=== PATIENT | female | born 1960 | race African-American/Black ===

== ENCOUNTER 2024-04-28 15:56 | Emergency (ER) | payer OTHER ==
[~2024-04-28] VITALS: Ht 162.6 cm; Wt 58.0 kg
[2024-04-28 16:31] VITALS: O2SAT 100
[2024-04-28] MEDS ORDERED: CEFTRIAXONE SODIUM 500MG VIAL IM ONE (17:30)
[2024-04-28] MEDS ORDERED: DOXY100T2 MT (17:58)
[2024-04-28] MEDS ORDERED: METR-167 MT (17:58)
[2024-04-28 18:02] LABS: CLARITY URINE TURBID (CLEAR); COLOR URINE DARK YELLOW (YELLOW); GLUCOSE URINE NEGATIVE (NEGATIVE); KETONES URINE NEGATIVE (NEGATIVE); LEUKOCYTE ESTERASE URINE 3+ (NEGATIVE); NITRITE URINE NEGATIVE (NEGATIVE); OCCULT BLOOD URINE 2+ (NEGATIVE); PH URINE 5.5 (4.5-8.0); PROTEIN URINE 2+ (NEGATIVE); SPECIFIC GRAVITY URINE 1.027 (1.005-1.030)
[2024-04-28 18:34] LABS: BACTERIA URINE 3+; SQUAMOUS EPITHELIAL CELL URINE 1+ /lpf (RARE/1+)
[2024-04-28 18:35] LABS: WBC URINE TNTC /hpf (0-2)
[2024-04-28 19:41] VITALS: BP 128/90; PULSE 80; RESP 18; TEMP 36.89184; O2SAT 100
[2024-04-28] MEDS: CEFTRIAXONE SODIUM 500MG VIAL IM NR (19:41)
[2024-04-30 14:08] LABS: CHLAMYDIA TRACHOMATIS NAA Negative (Negative); NEISSERIA GONORRHOEAE NAA Negative (Negative)
== END 2024-04-28 19:42 | disposition home or self-care (01) ==
LOC: ER 15:56
DX: N89.8 Other specified noninflammatory disorders of vagina (principal); I10 Essential (primary) hypertension; Z86.73 Personal history of transient ischemic attack (TIA), and cerebral infarction without residual deficits
CPT/HCPCS: 99283; 87491; 87591; 81003; 87086; 96372; J0696

== ENCOUNTER 2024-06-13 05:48 | Emergency (ER) | payer SELFPAY ==
[~2024-06-13] VITALS: Ht 170.2 cm; Wt 66.0 kg
[~2024-06-13 05:48] MED LIST: DOXY100T2 MT; METR-167 MT
[2024-06-13 06:15] VITALS: O2SAT 100
[2024-06-13] MEDS: LIDOCAINE HCL/PF 1% 10 MG/ML 5ML VIAL IJ NR (07:42)
[2024-06-13] MEDS: CEFTRIAXONE SODIUM 500MG VIAL IM NR (07:43)
[2024-06-13 07:59] LABS: CLARITY URINE CLEAR (CLEAR); COLOR URINE YELLOW (YELLOW); GLUCOSE URINE NEGATIVE (NEGATIVE); KETONES URINE NEGATIVE (NEGATIVE); LEUKOCYTE ESTERASE URINE 3+ (NEGATIVE); NITRITE URINE NEGATIVE (NEGATIVE); OCCULT BLOOD URINE NEGATIVE (NEGATIVE); PROTEIN URINE NEGATIVE (NEGATIVE); SPECIFIC GRAVITY URINE 1.018 (1.005-1.030)
[2024-06-13] MEDS ORDERED: METR-167 MT (08:23)
[2024-06-13] MEDS ORDERED: DOXY100C74 MT (08:23)
[2024-06-13 08:27] LABS: BACTERIA URINE 1+; SQUAMOUS EPITHELIAL CELL URINE 1+ /lpf (RARE/1+); WBC URINE 50-100 /hpf (0-2); YEAST URINE NONE SEEN
[2024-06-13 08:40] VITALS: BP 162/84; PULSE 81; RESP 18; TEMP 36.78072; O2SAT 99
[2024-06-15 10:08] LABS: CHLAMYDIA TRACHOMATIS NAA Negative (Negative); NEISSERIA GONORRHOEAE NAA Negative (Negative)
== END 2024-06-13 08:42 | disposition home or self-care (01) ==
LOC: ER 05:48
DX: A59.01 Trichomonal vulvovaginitis (principal); B96.89 Other specified bacterial agents as the cause of diseases classified elsewhere; Z86.73 Personal history of transient ischemic attack (TIA), and cerebral infarction without residual deficits
CPT/HCPCS: 87491; 87591; 81003; 87086; 87210; 96372; 99283; J0696; J3490; Z7610

== ENCOUNTER 2024-08-21 04:52 | Emergency (ER) | payer MEDICAID, OTHER ==
[~2024-08-21] VITALS: Ht 162.6 cm; Wt 66.0 kg
[~2024-08-21 04:52] MED LIST changes: +DOXY100C74 MT
[2024-08-21 04:58] VITALS: O2SAT 100
[2024-08-21] MEDS ORDERED: CEFTRIAXONE SODIUM 500MG VIAL IM ONE (05:15)
[2024-08-21] MEDS ORDERED: DOXY100C74 MT (05:21)
[2024-08-21] MEDS ORDERED: METR-167 MT (05:21)
[2024-08-21] MEDS: CEFTRIAXONE SODIUM 500MG VIAL IM NR (05:25)
[2024-08-21 05:43] VITALS: BP 162/74; PULSE 80; RESP 18; TEMP 36.8; O2SAT 100
[2024-08-23 08:08] LABS: CHLAMYDIA TRACHOMATIS NAA Negative (Negative); NEISSERIA GONORRHOEAE NAA Negative (Negative)
== END 2024-08-21 05:44 | disposition home or self-care (01) ==
LOC: ER 04:52
DX: N76.0 Acute vaginitis (principal); I10 Essential (primary) hypertension; Z79.899 Other long term (current) drug therapy; Z98.890 Other specified postprocedural states
CPT/HCPCS: 99284; 87491; 87591; 87210; 96372; J0696